=== PATIENT | male | born 1965 | race Hispanic/Latino ===

== ENCOUNTER 2016-06-03 01:52 | Emergency (ER) | payer OTHER, MEDICARE ==
[~2016-06-03] VITALS: Ht 182.9 cm; Wt 81.6 kg
[~2016-06-03 01:52] MED LIST: AUGMENTIN 875 M1 TAB PO; AUGMENTIN250 MG/5 M PO; BLEPH-105 ML OPH; CORTISPORIN OTIC AS; IBUPROFEN800 MG PO; KEFLEX500 MG PO; LISINOPRIL10 MG PO; MEDROL DOSEPAK1 PAC PO; METHADONE10 MG PO; PERCOCET 325 MG1 TA2 PO; TESSALON PERLE100 MG PO
[2016-06-03 02:07] VITALS: BP 163/96
--- NOTE | 2016-06-03 02:10 | ED EAR COMPLAINT ---
History of Present Illness General Chief Complaint: Ear Complaints Stated Complaint: LT EAR SWELLING DIFF HEARING PER PT Source: patient Exam Limitations: no limitations Vital Signs & Intake/Output Vital Signs & Intake/Output Vital Signs Date Time Temp Pulse Resp B/P Pulse O2 O2 Flow FiO2 Ox Delivery Rate 06/03 0211 100 Room Air 06/03 0207 98.1 85 18 163/96 96 Room Air Allergies Coded Allergies: ketorolac (Severe, THROAT/MOUTH/TONGUE SWELLING 10/19/15) aspirin (Mild, UPSET STOMACH 11/01/15) Reconcile Medications Amoxicillin/Potassium Clav (Augmentin 875-125 Tablet) 875 MG-125 MG TABLET 1 TAB PO BID EAR INFECTION AMOXICILLIN/POTASSIUM CLAV (Augmentin 875-125 Tablet) 875 MG/125 MG TAB 1 TAB PO BID SINUSITIS/BRONCHITIS Augmentin (Amox-Clav 250-62.5 MG/5 Ml Martha) 250 MG/5 ML MARTHA 4 TSP PO BID PHARYNGITIS Benzonatate (Tessalon Perle) 100 MG SGL 1 TAB PO Q8H PRN COUGH Cephalexin (Keflex) 500 MG CAP 1 TAB PO 4 TIMES/DAY PROPHYLAXIS/INFECTION [CORTISPORIN OTIC] SUSPENSION 4 DROP Q6 EAR INFECTIONS 4 DROPS TO BOTH EAR CANALS EVERY 6 HOURS FOR 7 DAYS Ibuprofen 800 MG TAB 1 TAB PO 4 TIMES/DAY PRN PAIN Lisinopril 10 MG TAB 1 TAB PO DAILY HTN (Reported) Meclizine HCl 25 MG TABLET 1 TAB PO TIDPRN PRN VERTIGO Methadone Hydrochloride (Methadone) 10 MG TAB 70 MG PO DAILY WITHDRAWL ( Reported) Methylprednisolone. (Medrol) 1 PAC PAC 1 PAC PO TAPER SINUSITIS/BRONCHITIS OXYCODONE HCL/ACETAMINOPHEN (Percocet 5-325 MG Tablet) 325 MG/5 MG TAB 1-2 TAB PO Q4-6 PRN PRN PAIN Sulfacetamide Sodium (Bleph-10) 5 ML DROPS 2 GTT OPH 4 TIMES/DAY PRN PINK EYE Sulfamethoxazole/Trimethoprim (Bactrim Ds Tablet) 800 MG-160 MG TABLET 1 TAB PO BID EAR INFECTION Triage Nurses Notes Reviewed? yes Onset: Gradual Duration: week(s):, waxing and waning Timing: recent history Injury Environment: home Severity: mild, moderate Modifying Factors: Improves With: rest. Associated Symptoms: left ear swelling HPI: 50-year-old gentleman presents with several weeks of bilateral ear pain with drainage. He says for the past week his left ear has felt warm, red, swollen. He states also, "I feel like my hearing is muffled. Sometimes I get vertigo." He notes that he has no fever chills headache blurry vision sore throat problems breathing or chest pain. He is otherwise well. Past History Travel History Traveled to [place] past 21 day No Medical History Any Pertinent Medical History? 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 No Review of Systems Review of Systems Constitutional: Reports: no symptoms. EENTM: Reports: no symptoms. Respiratory: Reports: no symptoms. Cardiovascular: Reports: no symptoms. GI: Reports: no symptoms. Genitourinary: Reports: no symptoms. Musculoskeletal: Reports: no symptoms. Skin: Reports: no symptoms. Neurological/Psychological: Reports: no symptoms. Hematologic/Endocrine: Reports: no symptoms. Immunologic/Allergic: Reports: no symptoms. All Other Systems: Reviewed and Negative Physical Exam Physical Exam General Appearance: well developed/nourished, mild distress Head: atraumatic Eyes: Bilateral: normal appearance. Ears: Left: swelling (Left-rubor,calor,dolor, mild). Bilateral: discharge, other. Nose: normal inspection Mouth/Throat: normal mouth inspection, pharynx normal Neck: normal inspection, supple Cardiovascular/Respiratory: normal breath sounds, regular rate/rhythm Back: normal inspection Neurologic/Psych: awake, alert, oriented x 3, normal mood/affect Skin: intact, normal color, warm/dry Progress Differential Diagnoses I considered the following diagnoses in my evaluation of the patient: otitis media and externa vs other. Plan of Care: see below Initial ED EKG: none Departure Departure Disposition: HOME OR SELF CARE Condition: Stable Clinical Impression Primary Impression: Otitis media Secondary Impressions: Otitis externa Referrals: SHANE RICK (PCP/Family) Departure Forms: Customer Survey General Discharge Information Prescriptions: Current Visit Scripts Amoxicillin/Potassium Clav (Augmentin 875-125 Tablet) 1 TAB PO BID #20 TAB Sulfamethoxazole/Trimethoprim (Bactrim Ds Tablet) 1 TAB PO BID #20 TAB Meclizine HCl 1 TAB PO TIDPRN PRN VERTIGO #30 TAB Comments will treat covering mrsa on the left ear... close follow up advised.
[2016-06-03] MEDS ORDERED: MECLIZINE HCL25 MG PO (02:33)
[2016-06-03] MEDS ORDERED: AUGMENTIN 875-1 EACH PO (02:33)
[2016-06-03] MEDS ORDERED: BACTRIM DS TAB1 EACH PO (02:33)
== END 2016-06-03 02:42 ==
LOC: ERH 01:52
DX: H66.92 Otitis media, unspecified, left ear (principal); H60.92 Unspecified otitis externa, left ear
CPT/HCPCS: J3490

== ENCOUNTER 2016-09-17 03:44 | Emergency (ER) | payer OTHER, MEDICARE ==
[~2016-09-17] VITALS: Ht 167.6 cm; Wt 81.6 kg
[~2016-09-17 03:44] MED LIST changes: +AUGMENTIN 875-1 EACH PO; +BACTRIM DS TAB1 EACH PO; +MECLIZINE HCL25 MG PO
--- NOTE | 2016-09-17 04:18 | ED GI/GU/ABDOMINAL COMPLAINT ---
History of Present Illness General Chief Complaint: General Adult Stated Complaint: "THINK I HAVE A KIDNEY STONE" RIGHT SIDE PAIN Source: patient Exam Limitations: no limitations Vital Signs & Intake/Output Vital Signs & Intake/Output Vital Signs Date Time Temp Pulse Resp B/P B/P Pulse O2 O2 Flow FiO2 Mean Ox Delivery Rate 09/17 0549 97.2 62 18 137/87 97 Room Air 09/17 416 97 Room Air 09/17 412 97.1 74 18 156/90 97 Room Air Allergies Coded Allergies: ketorolac (Severe, THROAT/MOUTH/TONGUE SWELLING 09/17/16) aspirin (Mild, UPSET STOMACH 09/17/16) Reconcile Medications Esomeprazole (Nexium) 40 MG CAPSULE.DR 1 CAP PO DAILY GERD (Reported) Lisinopril 10 MG TAB 1 TAB PO DAILY HTN (Reported) [METHADONE] 100 MG PO DAILY BACK PAIN (Reported) Tamsulosin HCl (Flomax) 0.4 MG CAP.ER.24H 1 CAP PO DAILY KIDNEY STONE Triage Note: TRIAGE: PATIENT TO ER FROM HOME REPORTING 8/10 L FLANK PAIN INTO L ABDOMEN X 2 DAYS, REPORTS NO HX KIDNEY STONES. PATIENT DENIES URINARY DIFFICULTIES. PATIENT REPORTING +NAUSEA, DENIES VOMITTING/ DIARRHEA. Triage Nurses Notes Reviewed? yes Onset: Abrupt Duration: day(s): (FEW) Timing: multiple episodes today Quality/Severity: sharpness, severe Location: left flank Radiation: LLQ HPI: 51 year old male with h/o HTN presents with left flank pain radiating to LLQ x few days. Positive hematuria, intense pain, worsening today. No history of kidney stones or UTI. Patient denies any fever or chills. Appetite is within normal limits. Bowel movements are within normal limits. Past History Travel History Traveled to [place] past 21 day No Medical History Any Pertinent Medical History? see below for history Neurological: NONE EENT: STREP THROAT Cardiovascular: hypertension Respiratory: NONE Gastrointestinal: NONE Hepatic: NONE Renal: NONE Musculoskeletal: NONE Psychiatric: NONE Endocrine: NONE Blood Disorders: NONE Cancer(s): NONE ETHYLBENZENE OXIDIZER/Reproductive: NONE Tetanus Vaccine: 11/03/14 Surgical History Surgical History: N Psychosocial History What is your primary language Greenlandic Tobacco Use: Refused to answer Family History Hx Contributory? No Review of Systems Review of Systems Constitutional: Denies: chills, fever. EENTM: Reports: no symptoms. Respiratory: Denies: cough, short of breath. Cardiovascular: Denies: chest pain. GI: Reports: abdominal pain, nausea. Genitourinary: Reports: dysuria, hematuria. Musculoskeletal: Reports: no symptoms. Skin: Reports: no symptoms. Neurological/Psychological: Reports: no symptoms. Hematologic/Endocrine: Reports: polyuria. Denies: bruising, bleeding, polydipsia. Immunologic/Allergic: Reports: no symptoms. All Other Systems: Reviewed and Negative Physical Exam Physical Exam General Appearance: well developed/nourished, alert, awake Head: atraumatic, normal appearance Eyes: Bilateral: normal appearance, PERRL, EOMI. Ears, Nose, Throat, Mouth: hearing grossly normal, moist mucous membrane Neck: normal inspection, supple, full range of motion Respiratory: normal breath sounds, chest non-tender, no respiratory distress Cardiovascular: regular rate/rhythm Peripheral Pulses: 2+ radial (R), 2+ radial (L) Gastrointestinal: normal bowel sounds, soft, tenderness (LLQ) Back: CVA tenderness (L) Neurologic/Psych: no motor/sensory deficits, awake, alert, oriented x 3 Core Measures ACS in differential dx? No Severe Sepsis Present: No Septic Shock Present: No Progress Differential Diagnosis: diverticulitis, UTI/pyelo Plan of Care: Orders Procedure Date/time Status COMPREHENSIVE METABOLIC PANEL 09/17 445 Complete CBC WITHOUT DIFFERENTIAL 09/17 445 Complete CULTURE,URINE 09/17 035 Active URINALYSIS 09/17 035 Complete Laboratory Tests 09/17/16 0514: Anion Gap 9, Estimated GFR > 60, BUN/Creatinine Ratio 17.8, Glucose 106 H, Calcium 9.0, Total Bilirubin 0.4, AST 21, ALT 30, Alkaline Phosphatase 62, Total Protein 6.7, Albumin 4.0, Globulin 2.7, Albumin/Globulin Ratio 1.5, CBC w Diff NO MAN DIFF REQ, RBC 5.20, MCV 85.1, MCH 28.1, RDW 14.1, MPV 6.9 L, Gran % 51.2 , Lymphocytes % 37.6, Monocytes % 6.1, Eosinophils % 4.4, Basophils % 0.7, Absolute Granulocytes 4.2, Absolute Lymphocytes 3.1, Absolute Monocytes 0.5, Absolute Eosinophils 0.4, Absolute Basophils 0.1, PUBS MCHC 33.0 09/17/16 0400: Urine Color STRAW, Urine Clarity HAZY H, Urine pH 6.0, Ur Specific [place] 1.010, Urine Protein NEG, Urine Ketones NEG, Urine Nitrite NEG, Urine Bilirubin NEG, Urine Urobilinogen 1.0, Ur Leukocyte Esterase TRACE H, Ur Microscopic SEDIMENT EXAMINED, Urine RBC 5-10 H, Urine WBC 3-5 H, Ur Epithelial Cells RARE , Urine Bacteria RARE H, Urine Mucus FEW, Urine Hemoglobin LARGE H, Urine Glucose NEG Microbiology 09/17 0400 URINE ROUT: Urine Culture - RECD Diagnostic Imaging: Viewed by Me: CT Scan. Discussed w/RAD: CT Scan. Radiology Impression: PATIENT: UMANG ASKEW PRESENT AGE: 51 PATIENT ACCOUNT NO: [id number] : 64 LOCATION: [facility] ORDERING PHYSICIAN: KAMI CLAYTON MD SERVICE DATE: 09/17/16 EXAM TYPE: CAT - CT ABD & PELVIS W/O IV CONTRAS EXAMINATION: CT ABDOMEN AND PELVIS WITHOUT CONTRAST CLINICAL INFORMATION: Left lower quadrant/left flank pain. Hematuria. COMPARISON: 01/08/2010 TECHNIQUE: Multidetector volumetric imaging was performed from the superior aspect of the liver through the pubic symphysis. Sagittal and coronal reformatted images were obtained on the technologist's workstation. DLP: 522 mGy-cm FINDINGS: LUNG BASES: The visualized lung bases are clear. Coronary artery calcifications noted. LIVER, GALLBLADDER, AND BILIARY TREE: The liver is normal in size, shape, and attenuation. No focal hepatic lesion or biliary ductal dilatation is present. The gallbladder is unremarkable with no evidence of radiopaque gallstones, gallbladder wall thickening, or obvious pericholecystic inflammatory changes. PANCREAS: Unremarkable. SPLEEN: Unremarkable. ADRENAL GLANDS: Unremarkable. KIDNEYS AND URETERS: The kidneys are normal in size, shape, and attenuation. There is mild left hydroureteronephrosis. There is a 0.5 cm proximal ureteral calculus, 15 cm from the posterior axillary line. This is at the level of L3-L4. The distal ureter is decompressed. Phleboliths are seen in the pelvis. No right-sided hydronephrosis or calculi. BLADDER: Unremarkable. GASTROINTESTINAL TRACT: The stomach and small bowel are unremarkable. No dilated loops of bowel or evidence of obstruction. No colonic wall thickening or inflammatory change. No free air or free fluid. ABDOMINAL WALL: No significant hernia is appreciated. LYMPH NODES: Normal. VASCULAR: Mild atherosclerotic calcifications. PELVIC VISCERA: The prostate and seminal vesicles are unremarkable. OSSEOUS STRUCTURES: No acute or suspicious osseous abnormality. Degenerative changes at L4-L5 with disc space narrowing and vacuum disc phenomenon. IMPRESSION: Mild left hydroureteronephrosis with a 0.5 cm proximal ureteral calculus. DICTATED BY: KELECHI MCRAE MD DATE/TIME DICTATED:09/17/16521 SANDSTONE SPLITTER:FIOR DATE/TIME TRANSCRIBED:521 CONFIDENTIAL, DO NOT COPY WITHOUT APPROPRIATE AUTHORIZATION. < Electronically signed in Other Vendor System> SIGNED BY: KELECHI MCRAE MD 09/17/16527 Initial ED EKG: none Departure Departure Time of Disposition: 550 Disposition: HOME OR SELF CARE Condition: Stable Clinical Impression Primary Impression: Renal stone Referrals: ALBERT TANNER,SHANE PORTILLO (PCP/Family) Additional Instructions: Take the Flomax, ibuprofen and Percocet as directed. Take the pain medications only as needed. Drink plenty of fluids. Use the urinary strainer as directed. Follow-up with the urology specialist listed on your discharge paperwork. Return to the ER for any changing or worsening symptoms. Departure Forms: Customer Survey General Discharge Information Prescriptions: Current Visit Scripts Tamsulosin HCl (Flomax) 1 CAP PO DAILY #14 CAP
--- NOTE | 2016-09-17 05:28 | CT SCAN REPORT ---
EXAMINATION: CT ABDOMEN AND PELVIS WITHOUT CONTRAST CLINICAL INFORMATION: Left lower quadrant/left flank pain. Hematuria. COMPARISON: 01/08/2010 TECHNIQUE: Multidetector volumetric imaging was performed from the superior aspect of the liver through the pubic symphysis. Sagittal and coronal reformatted images were obtained on the technologist's workstation. DLP: 522 mGy-cm FINDINGS: LUNG BASES: The visualized lung bases are clear. Coronary artery calcifications noted. LIVER, GALLBLADDER, AND BILIARY TREE: The liver is normal in size, shape, and attenuation. No focal hepatic lesion or biliary ductal dilatation is present. The gallbladder is unremarkable with no evidence of radiopaque gallstones, gallbladder wall thickening, or obvious pericholecystic inflammatory changes. PANCREAS: Unremarkable. SPLEEN: Unremarkable. ADRENAL GLANDS: Unremarkable. KIDNEYS AND URETERS: The kidneys are normal in size, shape, and attenuation. There is mild left hydroureteronephrosis. There is a 0.5 cm proximal ureteral calculus, 15 cm from the posterior axillary line. This is at the level of L3-L4. The distal ureter is decompressed. Phleboliths are seen in the pelvis. No right-sided hydronephrosis or calculi. BLADDER: Unremarkable. GASTROINTESTINAL TRACT: The stomach and small bowel are unremarkable. No dilated loops of bowel or evidence of obstruction. No colonic wall thickening or inflammatory change. No free air or free fluid. ABDOMINAL WALL: No significant hernia is appreciated. LYMPH NODES: Normal. VASCULAR: Mild atherosclerotic calcifications. PELVIC VISCERA: The prostate and seminal vesicles are unremarkable. OSSEOUS STRUCTURES: No acute or suspicious osseous abnormality. Degenerative changes at L4-L5 with disc space narrowing and vacuum disc phenomenon. IMPRESSION: Mild left hydroureteronephrosis with a 0.5 cm proximal ureteral calculus.
[2016-09-17 05:29] LABS: ABSOLUTE BASOPHIL COUNT 0.1 /CUMM (0.0-0.2); ABSOLUTE EOSINOPHIL COUNT 0.4 /CUMM (0.0-0.7); ABSOLUTE GRANULOCYTE CT 4.2 /CUMM (1.4-6.5); ABSOLUTE LYMPH COUNT 3.1 /CUMM (1.2-3.4); ABSOLUTE MONOCYTE COUNT 0.5 /CUMM (0.10-0.60); BASOPHIL % 0.7 % (0.0-2.0); EOSINOPHIL % 4.4 % (0-5); GRANULOCYTE % 51.2 % (42.2-75.2); HEMATOCRIT 44.2 % (42-52); MEAN CORPUSCULAR HGB 28.1 PG (27.0-31.0); MEAN CORPUSCULAR VOLUME 85.1 FL (80.0-94.0); MEAN PLATELET VOLUME 6.9 FL (7.4-10.4); PLATELET COUNT 253 /CUMM (130-400); RBC DISTRIBUTION WIDTH 14.1 % (11.5-14.5); WHITE BLOOD CELL COUNT 8.3 /CUMM (4.8-10.8)
[2016-09-17 05:49] VITALS: BP 137/87
[2016-09-17] MEDS ORDERED: ROXICODONE5 M1 PO (05:53)
[2016-09-17] MEDS ORDERED: FLOMAX0.4 M1 PO (05:53)
[2016-09-20] MEDS ORDERED: NEXIUM40 M1 PO (08:13)
[2016-09-20] MEDS ORDERED: METHADONE PO (08:13)
== END 2016-09-17 06:02 ==
LOC: ERH 03:44
PROVIDERS: Emergency Medicine
DX: N20.0 Calculus of kidney (principal)
CPT/HCPCS: 74176; 81001; 87086; 96374; 96375; J0131; J2405

== ENCOUNTER → 2016-09-23 | Day surgery (SDC) | payer OTHER, MEDICARE ==
[~2016-09-23] VITALS: Ht 167.6 cm; Wt 86.2 kg
[~2016-09-23] MED LIST changes: +FLOMAX0.4 M1 PO; +METHADONE PO; +NEXIUM40 M1 PO; +ROXICODONE5 M1 PO
--- NOTE | 2016-09-23 09:04 | Operative Report ---
Operative/Inv Procedure Report Surgery Date: 09/23/16 Name of Procedure: left extracorporeal shockwave lithotripsy Pre-Operative Diagnosis: left proximal ureteral stone with mild hydroureteronephrosis Post-Operative Diagnosis: same Estimated Blood Loss: scant Surgeon/Application Packaging Consultant: NABEEL PRICE MD Anesthesia: local monitored anesthesi Complications: none Condition: stable Operative Indication: left renal colic Operative/Procedure Note Note: 51yo male with a recent hx of a kidney stone. On CT he was found to have a left 5mm proximal ureteral stone with mild hydroureteronephrosis. He has been having bothersome left renal colic. He has been using the methadone in small doses to manage his pain. He was identified in the holding area and consented for a left extracorporeal shockwave lithotripsy. He was given the risks, benefits and alternatives and all questions were answered. He was taken to the operating room and positioned for left side ESWL. A timeout was performed. The stone was attempted to be visualized but unable to be found by flouroscopy or US. A bolus of IV Omnipaque 50cc 240mg/ml was given. After about 5 mins, flouroscopy images were taken and the ureteral stone was then identified at mid L5. This was blasted with 3000 shocks using flouroscopy intermittently. The shocks were started at power of 1-10 then 11-20 with grouped shocks ramping up to 3000 total shocks. The IV contrast was seen to pass the sight of the previous bloackage. The patient tolerated the proceure well. Findings: midureteral stone at mid L5 found with IV contrast injection and flouroscopy Discharge Disposition: Same Day Admissions
== END ==
LOC: STS 05:11
DX: N13.2 Hydronephrosis with renal and ureteral calculous obstruction (principal); Z79.891 Long term (current) use of opiate analgesic; I10 Essential (primary) hypertension; K21.9 Gastro-esophageal reflux disease without esophagitis; E66.9 Obesity, unspecified; Z68.30 Body mass index [BMI] 30.0-30.9, adult; Z87.891 Personal history of nicotine dependence
CPT/HCPCS: J0131; J0690; J1885; J2250

== ENCOUNTER → 2017-09-30 | Day surgery (SDC) | payer OTHER, MEDICARE ==
[~2017-09-30] VITALS: Ht 167.6 cm; Wt 87.1 kg
[~2017-09-30] MED LIST changes: +OXYCODONE-ACET1 EACH PO
--- NOTE | 2017-09-30 13:18 | Operative Report ---
Operative/Inv Procedure Report Surgery Date: 09/30/17 Name of Procedure: Robotic laparoscopic mesh repair of incarcerated umbilical hernia Pre-Operative Diagnosis: Incarcerated umbilical hernia Post-Operative Diagnosis: Same Estimated Blood Loss: scant Surgeon/Composition Instructor: Terrance TANNER,Yousuf Chisholm MD Anesthesia: general endotracheal tube Operative/Procedure Note Note: Patient was positioned supine on the table. After successful induction of general anesthesia the abdomen was clipped prepped and draped in usual sterile fashion. The abdominal skin is marked to guide where the mesh will lay, centered under the defect, and where the 3 8 mm robotic trochars will be positioned, centered in the left anterior axillary line between the ribs and the iliac crest. After injection of local anesthetic at a spot in the mid to lateral left subcostal area, a horizontal 1 cm incision was made with a 15 blade. Using the plastic pointed-tipped translucent 8 mm with a metal robotic trocar and the camera inserted, the abdominal wall was traversed through this incision, watching on the screen, as the trocar passes through the layers, alternating colors, yellow fat white fascia red muscle, until the tip just seems to licea the inner thin peritoneal layer. At that point, I stop pushing and check if it's open by turning on the gas. If the belly insufflates then you know you can advance that large trocar into an empty space more directly without injuring the viscera. The gas was turned on to 15 mm. At this point you can see the umbilical ventral defect, it was already reduced. Next the 2 remaining 8 mm robotic trochars are placed one in the mid abdomen axillary line as mentioned in one lower down above the iliac crest. The robot then is brought to the patient attached docked and targeted. Then on the near side a peritoneal flap is started by scoring it measuring roughly 6 cm from the defect towards the left first scoring the peritoneum in a vertical line and then completing the incision with cautery keeping the flap thin paying particular care to not include the transversalis fascia or even the rectus sheath posterior leaf, however in this patient in particular the peritoneal layer was very thin so we decided to develop the flap in a retrorectus plane, and continuing that flap across to the right past the defect also on that side at least 6 cm, the defect was approximately 2. This defect was then closed with a running 0 V lock suture. On the far side there was a small rent in the flap that we repaired with 3-0 Vicryl suture incorporating some of the transversalis for support. We then chose a Velcro type of mesh not coated sized it to 12 cm marked the rough surface rolled up like a scroll and stuffed down one of the trochars centered it over the defect on the near side there was one part that was growing a little bit we tacked that down into place with interrupted 3-0 Vicryl suture otherwise the mesh laid nicely and flat we had stopped corners to prevent curling it fit well within the flap that we had created and then we closed the flap that vertical line on the near side with a running 2-0 V lock suture. Next we checked for hemostasis and then undocked letting the gas escape pulling out the instruments and the trochars these 3 incisions were small there was no fascial closure needed and we then closed the skin with subcuticular 4-0 Monocryl, and then Mastisol, Steri-Strips and Band-Aids. Overall estimated blood loss was minimal, lap and sponge counts were correct, wound expectancy was clean, IV fluids crystalloid, complications none, patient tolerated the procedure well, did not significantly morris during extubation and was returned to the recovery room in satisfactory condition.
== END ==
LOC: STS 02:58
DX: K42.0 Umbilical hernia with obstruction, without gangrene (principal); I10 Essential (primary) hypertension; K21.9 Gastro-esophageal reflux disease without esophagitis; F17.290 Nicotine dependence, other tobacco product, uncomplicated; M19.012 Primary osteoarthritis, left shoulder
CPT/HCPCS: C1781; J0131; J0690; J1100; J2250; J3490